=== PATIENT | female | born 1965 | race Caucasian/White ===

== ENCOUNTER 2017-12-12 20:15 | Emergency (ER) | payer OTHER ==
[~2017-12-12] VITALS: Ht 160 cm; Wt 68.3 kg
[2017-12-12 20:27] VITALS: TEMP 36.4; Ht 160 cm; Wt 68.3 kg
[2017-12-12] MEDS ORDERED: SODIUM CHLORIDE 0.9% 1000ML 1,000 ML, SODIUM CHLORIDE 0.9% 1000ML 1,000 ML IV ONE (22:00)
[2017-12-12 22:31] LABS: HEMATOCRIT 36.7 % (37-47); HEMOGLOBIN 12.9 g/dL (12.0-16.0); MEAN CELL VOLUME 88.6 fL (80-100); MEAN CORPUSCULAR HEMOGLOBIN 31.2 pg (25-34); MEAN CORPUSCULAR HGB CONC 35.1 g/dl (32-36); MEAN PLATELET VOLUME 10.2 fL (7.4-10.4); PLATELET COUNT 221 K/uL (130-400); RED CELL DISTRIBUTION WIDTH CV 12.6 % (11.5-14.5); RED CELL DISTRIBUTION WIDTH SD 40.7 fL (36.4-46.3); WHITE BLOOD COUNT 12.47 K/uL (4.8-10.8)
[2017-12-12 22:50] LABS: ALBUMIN 4.3 gm/dl (3.4-5.0); BASO % 0.2 %; BASO ABS # 0.02 K/uL (0-0.2); CALCIUM 9.1 mg/dl (8.5-10.1); CREATININE 1.09 mg/dl (0.60-1.20); IG# 0.03 K/uL (0.00-0.02); LYMPH % 7.2 %; MONO % 7.5 %; MONO ABS # 0.94 K/uL (0.11-0.59); NEUT % 84.9 %; NEUT ABS # 10.58 K/uL (1.4-6.5); POTASSIUM 4.1 mmol/L (3.5-5.1)
[2017-12-12 22:52] LABS: TOTAL PROTEIN 8.1 gm/dl (6.4-8.2)
[2017-12-12] MEDS ORDERED: FOSI10TA2 PO (22:52)
[2017-12-12] MEDS ORDERED: INSPMPHMLG (22:52)
[2017-12-12] MEDS ORDERED: ONDANSETRON HOME PACK 4MG OD TAB PO ONE (23:45)
[2017-12-13 00:06] VITALS: BP 105/49; PULSE 99; O2SAT 100
--- NOTE | 2017-12-13 03:59 | EMERGENCY ROOM VISIT NOTE ---
History First contact with patient: 21:45 Chief Complaint: DEHYDRATION Stated Complaint: KELOACIDOSIS/DEHYDRATION Nursing Triage Summary: pt states abdominal pain with nausea since this morning, pt hx DM type I and unable to control BSG today. Pt states BSG not lower than 400 until this evening. History of Present Illness The patient is a 52 year old female who presents to the Emergency Room with complaints of mild abdominal pain with nausea and vomiting over the past day. The patient is visiting from out of town and is a type I diabetic. She is typically well controlled with her sugar, and does use an insulin pump. She states that her sugar has been greater than 400 all day, and she is having difficulty getting this under control. She did have a headache earlier, but has been eating ice chips and administering additional insulin which has slowly helped her symptoms. She has not had vomiting in about 12 hours but does have some very mild nausea. The patient rates her overall discomfort a 5/10. Review of Systems More than 10 systems were reviewed and otherwise negative with the exception of history of present illness. Past Medical/Surgical History Type I diabetic Family History No pertinent family history Social History Smoking Status: Never Smoker Occupation Status: employed Current/Historical Medications Scheduled Fosinopril Sodium (Monopril), 10 MG PO QAM Insulin Human Lispro (Insulin Humalog Pump ), 30 UNITS N/A UD Physical Exam Vital Signs Date Time Temp Pulse Resp B/P (MAP) Pulse Ox O2 Delivery O2 Flow Rate FiO2 12/13/17 00:06 99 16 105/49 100 Room Air 12/12/17 22:39 99 16 127/60 100 Room Air 12/12/17 20:27 36.4 102 18 90/58 99 Room Air Physical Exam VITALS: Vitals are noted on the nurse's note and reviewed by myself. Vital signs stable. GENERAL: Well-developed, well-nourished, white female, who is in no acute distress and resting comfortably. Patient is cooperative with the examination. MOUTH: Mucous membranes dry. Tonsils are not enlarged. Pharynx without erythema, blood, or exudate. Uvula midline. Airway patent. NECK: Supple without nuchal rigidity. No lymphadenopathy. No thyromegaly. Cervical spine is nontender. HEART: Regular rate and rhythm without murmurs gallops or rubs. LUNGS: Clear to auscultation bilaterally without wheezes, rales or rhonchi. No retractions or accessory muscle use. ABDOMEN: Positive normal bowel sounds x 4. Soft, nontender, without masses or organomegaly. No guarding or rebound tenderness. Medical Decision & Procedures Laboratory Results 12/12/17 22:10 Red Blood Count 4.14, Mean Corpuscular Volume 88.6, Mean Corpuscular Hemoglobin 31.2, Mean Corpuscular Hemoglobin Concent 35.1, Mean Platelet Volume 10.2, Neutrophils (%) (Auto) 84.9, Lymphocytes (%) (Auto) 7.2, Monocytes (%) (Auto) 7.5, Eosinophils (%) (Auto) 0.0, Basophils (%) (Auto) 0.2, Neutrophils # (Auto) 10.58, Lymphocytes # (Auto) 0.90, Monocytes # (Auto) 0.94, Eosinophils # (Auto) 0.00, Basophils # (Auto) 0.02 12/12/17 22:10 Test 12/12/17 22:10 12/12/17 23:56 White Blood Count 12.47 K/uL (4.8-10.8) Red Blood Count 4.14 M/uL (4.2-5.4) Hemoglobin 12.9 g/dL (12.0-16.0) Hematocrit 36.7 % (37-47) Mean Corpuscular Volume 88.6 fL (80-100) Mean Corpuscular Hemoglobin 31.2 pg (25-34) Mean Corpuscular Hemoglobin Concent 35.1 g/dl (32-36) Platelet Count 221 K/uL (130-400) Mean Platelet Volume 10.2 fL (7.4-10.4) Neutrophils (%) (Auto) 84.9 % Lymphocytes (%) (Auto) 7.2 % Monocytes (%) (Auto) 7.5 % Eosinophils (%) (Auto) 0.0 % Basophils (%) (Auto) 0.2 % Neutrophils # (Auto) 10.58 K/uL (1.4-6.5) Lymphocytes # (Auto) 0.90 K/uL (1.2-3.4) Monocytes # (Auto) 0.94 K/uL (0.11-0.59) Eosinophils # (Auto) 0.00 K/uL (0-0.5) Basophils # (Auto) 0.02 K/uL (0-0.2) RDW Standard Deviation 40.7 fL (36.4-46.3) RDW Coefficient of Variation 12.6 % (11.5-14.5) Immature Granulocyte % (Auto) 0.2 % Immature Granulocyte # (Auto) 0.03 K/uL (0.00-0.02) Red Blood Cell Morphology Unremarkable Urine Color YELLOW Urine Appearance CLEAR (CLEAR) Urine pH 5.0 (4.5-7.5) Urine Specific [place] 1.026 (1.000-1.030) Urine Protein NEG (NEG) Urine Glucose (UA) 3+ (NEG) Urine Ketones 4+ (NEG) Urine Occult Blood TRACE (NEG) Urine Nitrite NEG (NEG) Urine Bilirubin NEG (NEG) Urine Urobilinogen NEG (NEG) Urine Leukocyte Esterase NEG (NEG) Urine WBC (Auto) 5-10 /hpf (0-5) Urine RBC (Auto) 0-4 /hpf (0-4) Urine Hyaline Casts (Auto) 1-5 /lpf (0-5) Urine Epithelial Cells (Auto) >30 /lpf (0-5) Urine Bacteria (Auto) 1+ (NEG) Venous Blood pH 7.33 (7.36-7.41) Venous Blood Partial Pressure CO2 43 mmHg (38.0-50.0) Venous Blood Partial Pressure O2 31 mmHg Venous Blood HCO3 22 mmol/L Venous Blood Oxygen Saturation < 60.0 % Venous Blood Base Excess -3.8 mEq/L Anion Gap 12.0 mmol/L (3-11) Est Creatinine Clear Calc Drug Dose 56.0 ml/min Estimated GFR () 67.6 Estimated GFR (Non- 58.3 BUN/Creatinine Ratio 25.2 (10-20) Calcium Level 9.1 mg/dl (8.5-10.1) Total Bilirubin 0.7 mg/dl (0.2-1) Aspartate Amino Transf (AST/SGOT) 21 U/L (15-37) Alanine Aminotransferase (ALT/SGPT) 36 U/L (12-78) Alkaline Phosphatase 74 U/L (45-117) Total Protein 8.1 gm/dl (6.4-8.2) Albumin 4.3 gm/dl (3.4-5.0) Globulin 3.8 gm/dl (2.5-4.0) Albumin/Globulin Ratio 1.1 (0.9-2) Beta-Hydroxybutyric Acid 23.84 mg/dL (0.2-2.81) Bedside Glucose 275 mg/dl (70-90) Medications Administered Medications (Trade) Dose Ordered Sig/Abimael Route Start Time Stop Time Status Last Admin Dose Admin Sodium Chloride/ Sodium Chloride 2,000 ml @ 999 mls/hr Q2H1M ONCE IV 12/12/17 22:00 12/13/17 00:00 DC 12/12/17 22:18 999 MLS/HR Ondansetron HCl (ZOFRAN ODT 4MG Home Pack) 1 [facility] ONCE PO 12/12/17 23:45 12/12/17 23:46 DC 12/13/17 00:05 1 [facility] ED Course Physical exam and history were performed. Nursing notes, EMR, and Medication List were personally reviewed. Patient appears to have elevated blood sugar readings this morning with nausea and vomiting. The patient is a type I diabetic and is typically well controlled with her insulin pump. She has been attempting to use a sliding scale insulin regimen throughout the day, but has been unsuccessful, indicating that her sugar has persistently been greater than 400 through most of the day. It only started coming down about 30 minutes ago while she was in the waiting room of the ER. On examination the patient appears slightly dry but certainly not toxic. IV access was established and labs were obtained. She was hydrated with 2 L normal saline. The patient's blood work is as above and was reviewed. She does not have a grossly elevated white blood cell count or significant electrolyte imbalance. Her pH is 7.33, making her slightly acidotic. Her ketones are elevated. Her sugar was elevated in the 250s. The patient was monitored for some time here in the department. She has Humalog that she is comfortable using on a sliding scale for breakthrough hyperglycemia. She did have some mild nausea here, but was able to tolerate p.o. fluids without difficulty. I discussed the case with my attending physician, and did offer hospitalist evaluation to the patient. The patient has a strong preference for discharge as she is feeling much better and is very comfortable utilizing insulin as an outpatient. This appears reasonable as she is only minimally acidotic. The patient will be given Zofran to help with the nausea, as she may have a viral infection that triggered this today. The patient is to have a low tolerance for returning to the ER. She was invited back if she has any complications. She should otherwise follow with her primary care physician in the next few days for recheck. She is pleased with plan of care and rated her discomfort a 1/10 at the time of departure. The chart was completed utilizing [employer] Speech Voice Recognition Software. Grammatical errors, random word insertions, pronoun errors, and incomplete sentences are an occasional consequence of this system due to software limitations, ambient noise, and hardware issues. Any formal questions or concerns about the content, text, or information contained within the body of this dictation should be directly addressed to the provider for clarification. . Medical Decision Differential diagnosis: Etiologies such as gastroenteritis, food borne illness, infections, appendicitis , diverticulitis, inflammatory bowel disease, obstruction, GI bleed, biliary pathology, as well as others were entertained. Impression Primary Impression: Hyperglycemia Additional Impression: Nausea & vomiting Departure Information Referrals No Doctor, Assigned (PCP) Patient Instructions [facility] Problem Qualifiers
== END 2017-12-13 00:15 | disposition home or self-care (01) ==
LOC: C.EDB 20:17
DX: E10.65 Type 1 diabetes mellitus with hyperglycemia (principal); R11.2 Nausea with vomiting, unspecified; Z96.41 Presence of insulin pump (external) (internal)